=== PATIENT | female | born 1995 | race Caucasian/White ===

== ENCOUNTER 2016-08-24 21:18 | Emergency (ER) | payer MEDICAID ==
[~2016-08-24] VITALS: Ht 162.6 cm; Wt 72.6 kg
[2016-08-24 21:25] VITALS: BP 149/78; PULSE 99; RESP 16; TEMP 97.4; O2SAT 98
--- NOTE | 2016-08-24 21:35 | NUR ---
Placed in room 03 . Placed on patient monitor, blood pressure machine and pulse oximeter. To gown for exam. Side rails up. Report given to TAYLOR Borges.
--- NOTE | 2016-08-24 21:37 | NUR ---
Pt presents to ED with c/o feeling of numbness and tingling in R side of face. 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 No neuro deficit noted, pt stated she will see a specialist next week. A&ox4, denies SOB or chestpain, denies N/V/D. skin intact, ambulatory, will continue to monitor
--- NOTE | 2016-08-24 21:40 | NUR ---
MD Coles at bedside examining pt
--- NOTE | 2016-08-24 21:56 | NUR ---
Patient given written and verbal discharge instructions and verbalizes understanding. ER MD Coles discussed with patient the results and treatment provided. Patient in stable condition. ID arm band removed. Rx of prednisone given. Patient educated on pain management and to follow up with PMD. Pain Scale 0/10. Opportunity for questions provided and answered.
== END 2016-08-24 21:56 | disposition home or self-care (01) ==
LOC: SED 21:18
DX: F41.9 Anxiety disorder, unspecified (principal); G51.0 Bell's palsy
CPT/HCPCS: 99283

== ENCOUNTER 2020-02-27 22:21 | Emergency (ER) | payer MEDICAID ==
[~2020-02-27] VITALS: Ht 165.1 cm; Wt 79.4 kg
[2020-02-27 22:34] VITALS: BP_SYST 117
--- NOTE | 2020-02-27 22:45 | NUR ---
ER at bedside examining patient.
--- NOTE | 2020-02-27 22:45 | NUR ---
Patient to ER bed 7 to gown for evaluation. Side rails up.
--- NOTE | 2020-02-27 22:45 | NUR ---
Patient came to ER with family. C/O vaginal bleeding x today. Per patient reported, had lower abdominal pain, vaginal bleeding , blight red, ~ 5 weeks, , LMP: 01/26. A/O,X4, lower abdominal pain, pain rate 3/10, moderate vaginal bleeding,vss.
--- NOTE | 2020-02-27 22:47 | NUR ---
Patient transported to radiology via wheelchair, accompanied by [employer] Operator.
[2020-02-27 23:24] LABS: BILIRUBIN,URINE NEGATIVE (NEGATIVE); BLOOD, URINE 3+ (NEGATIVE); CLARITY/URINE CLOUDY (CLEAR); COLOR,URINE RED (YELLOW); GLUCOSE,URINE NEGATIVE (NEGATIVE); KETONES,URINE NEGATIVE (NEGATIVE); LEUKOCYTE ESTERASE ,URINE NEGATIVE (NEGATIVE); NITRITE, URINE NEGATIVE (NEGATIVE); PROTEIN URINE TRACE (NEGATIVE); UROBILINOGEN,URINE 0.2 (0.2-1.0)
--- NOTE | 2020-02-27 23:42 | NUR ---
Blood for labwork drawn from interventional radiologist. Patient tolerated well.
[2020-02-27 23:44] LABS: BACTERIA,URINE MODERATE /HPF (None Seen); RBC,URINE >100 /HPF (0-3); WBC,URINE 0-3 /HPF (0-3)
[2020-02-28 00:11] LABS: BASOPHILS # (AUTO) 0.1 K/uL (0.0-0.2); BASOPHILS % (AUTO) 0.9 % (0.0-2.0); EOSINOPHILS # (AUTO) 0.1 K/uL (0.0-0.4); EOSINOPHILS % (AUTO) 0.7 % (0.0-4.0); HEMATOCRIT 37.8 % (36-48); HEMOGLOBIN 12.7 g/dL (12.0-16.0); LYMPHOCYTES # (AUTO) 2.4 K/uL (1.0-5.5); LYMPHOCYTES % (AUTO) 26.8 % (20.5-51.5); MEAN CORPUSCULAR HEMOGLOBIN 30 pg (27-31); MEAN CORPUSCULAR HGB CONC 34 % (32-36); MEAN CORPUSCULAR VOLUME 89 fL (79.0-98.0); MONOCYTES # (AUTO) 0.5 K/uL (0.0-1.0); MONOCYTES % (AUTO) 5.1 % (1.7-9.3); NEUTROPHILS # (AUTO) 5.9 K/uL (1.8-7.7); NEUTROPHILS % (AUTO) 66.5 % (40.0-70.0); PLATELET COUNT (AUTO) 203 K/uL (130-430); RED BLOOD CELL COUNT(AUTO) 4.27 MIL/uL (4.2-6.2); RED CELL DISTRIBUTION WIDTH 13.3 % (9.0-15.0); WHITE BLOOD COUNT (AUTO) 8.9 K/uL (4.8-10.8)
[2020-02-28 00:14] LABS: CALCIUM 8.1 mg/dL (8.4-11.0); CREATININE 0.64 mg/dL (0.55-1.30); POTASSIUM 3.6 mmol/L (3.5-5.1)
[2020-02-28 00:26] LABS: ALBUMIN 3.7 g/dL (3.4-4.8); TOTAL BILIRUBIN 0.3 mg/dL (0.0-1.0)
--- NOTE | 2020-02-28 00:49 | NUR ---
Patient given written and verbal discharge instructions and verbalizes understanding. ER MD discussed with patient the results and treatment provided. Patient in stable condition. ID arm band removed. Rx of Macrobid given. Patient educated on pain management and to follow up with PMD. Pain Scale 2/10. Opportunity for questions provided and answered. Medication side effect fact sheet provided.
[2020-02-28 00:50] VITALS: BP_SYST 117
== END 2020-02-28 00:50 | disposition home or self-care (01) ==
LOC: SED 22:21
DX: O20.0 Threatened abortion (principal); O26.891 Other specified pregnancy related conditions, first trimester; R39.198 Other difficulties with micturition; Z3A.01 Less than 8 weeks gestation of pregnancy
CPT/HCPCS: 36415; 76830; 76857; 80053; 81000; 81025; 84702; 85025; 86900; 86901; 87086; 99284; J7030; 76856-TC